=== PATIENT | female | born 1945 | race Hispanic/Latino ===

== ENCOUNTER 2020-05-25 19:22 | Emergency (ER) | payer OTHER ==
[~2020-05-25] VITALS: Ht 167.6 cm; Wt 90.7 kg
[2020-05-25] MEDS ORDERED: ONDANSETRON HCL 4 MG ORAL DISINTEGRATING TAB PO ONE (19:45)
[2020-05-25] MEDS ORDERED: HYDROCODONE/APAP 5MG-325MG TAB PO ONE (19:45)
--- NOTE | 2020-05-25 20:21 | Emergency Department Note ---
History of Present Illnes History of Present Illness Chief Complaint: Extremity Trauma/Pain History of Present Illness This is a 74 year old female reports tripped and fell at approx 1700; pt reports pain to right shoulder, cap refill <3 sec, pulses present, equal, strong; patient denies loc . Historian: Patient Arrival Mode: Car Onset (how long ago): hour(s) (2) Location: RIGHT SHOULDER Quality: PAIN Radiation: Reports non-radiation Severity: moderate Onset quality: sudden Duration (how long): hour(s) (2) Timing of current episode: constant Progression: unchanged Chronicity: new Context: Reports trauma/injury ( ABOVE); Denies recent illness, Denies recent surgery Relieving factors: none Exacerbating factors: movement Associated symptoms: Reports denies other symptoms Treatments prior to arrival: none Past Medical/Family History Physician Review I have reviewed the patient's past medical and family history. Any updates have been documented here. Past Medical History Recent Fever: No Clinical Suspicion of Infectio: No New/Unexplained Change in Ment: No Past Medical History: Hypertension, Hyperlipedemia, DVT/PE Past Surgical History: Cholecysctectomy Social History Smoking Cessation: Never Smoker Counseling Performed: No Alcohol Use: None Any Illegal Drug Use: No Other Any Pre-Existing Lines (PICC,: No Review of Systems Review of Systems Constitutional: Reports no symptoms EENTM: Reports no symptoms Cardiovascular: Reports no symptoms Respiratory: Reports no symptoms Gastrointestinal: Reports no symptoms Genitourinary: Reports no symptoms Musculoskeletal: Reports as per HPI Integumentary: Reports no symptoms Neurological: Reports no symptoms Psychological: Reports no symptoms Endocrine: Reports no symptoms Hematological/Lymphatic: Reports no symptoms Physical Exam Related Data Allergies: Coded Allergies: No Known Allergies (Unverified , 05/25/20) Triage Vital Signs Vital Signs Date Time Temp Pulse Resp B/P (MAP) Pulse Ox O2 Delivery O2 Flow Rate FiO2 05/25/20 19:32 98.1 95 17 192/75 100 Room Air Vital signs reviewed: Yes Physical Exam CONSTITUTIONAL Constitutional: Present well-developed, Present well-nourished HENT HENT: Present normocephalic, Present atraumatic, Present oropharynx clear/moist, Present nose normal HENT L/R: Present left ext ear normal, Present right ext ear normal EYES Eyes: Reports PERRL, Reports conjunctivae normal NECK Neck: Present ROM normal PULMONARY Pulmonary: Present effort normal, Present breath sounds normal CARDIOVASCULAR Cardiovascular: Present regular rhythm, Present heart sounds normal, Present capillary refill normal, Present normal rate GASTROINTESTINAL Abdominal: Present soft, Present nontender, Present bowel sounds normal GENITOURINARY Genitourinary: Present exam deferred SKIN Skin: Present warm, Present dry MUSCULOSKELETAL RIGHT SHOUDLER PT WITH PAIN TO PALPATIONS ROUND ENTIRE HUMERAL HEAD, NO OBVIOUS DEFORMITY, PULSES INTACT, NEURO INTACT NEUROLOGICAL Neurological: Present alert, Present oriented x 3, Present no gross motor or sensory deficits PSYCHOLOGICAL Psychological: Present mood/affect normal, Present judgement normal Results Imaging Imaging results reviewed: Yes Impressions Procedure: [id number] DX/SHOULDER RIGHT COMPLETE Exam Date: 05/25/20 Exam Time: 1999 REPORT STATUS: Signed Shoulder 2 views CPT code: 98771 Indication:Fall, pain Comparison: None. Findings: 2 views of the right shoulder were obtained. Fracture of the surgical neck with extension into the greater and lesser tuberosities and mild impaction. No glenohumeral dislocation. Mild inferior subluxation of the humeral head likely due to hemarthrosis. The acromion, clavicle, and scapula are intact. Visualized ribs are intact. IMPRESSION: Comminuted fracture of the proximal humerus as described above. Signed by: Dr. Praful Handley MD on 05/25/2020 8:17 PM Dictated By: PRAFUL HANDLEY MD 16 Transcribed By: PARESH on 05/25/202016 COPY TO: CASSIDY LESLIE MD~ Procedures Orthopedic Splinting/Casting Injury: Injury #1 Side: right Upper exremity injury location: shoulder Upper extremity immobilizer: sling/shoulder immobilizer Assessment & Plan Medical Decision Making MDM PT WITH RIGHT SHOULDER PAIN S/P FALL RIGHT SHOULDER XRAY ORDERED TO EVAL FOR FRACTURE, DISLOCATION NORCO 5/325 PO ORDERED ZOFRAN 4 MG ODT 1 SL ORDERED i spoke with dr weller (ortho), states have pt call office in am and to come see him in office tomorrow, place pt in sling and swath pt discharged with prescriptions for tylenol# 3 one po q 6 hours prn pain #20, zofran odt 4mg 1 sl q 6 hours prn nausea #20 Assessment & Plan Final Impression: (1) Humeral head fracture (2) Fx humeral neck Depart Disposition: HOME, SELF-CARE Last Vital Signs Date Time Temp Pulse Resp B/P (MAP) Pulse Ox O2 Delivery O2 Flow Rate FiO2 05/25/20 19:32 98.1 95 17 192/75 100 Room Air Medications in the ED Acetaminophen/ Hydrocodone Bitart 1 ea ONCE ONCE PO ; Start 05/25/20 at 19:45; Stop 05/25/20 at 19:49; Status DC Ondansetron HCl 4 mg ONCE ONCE PO ; Start 05/25/20 at 19:45; Stop 05/25/20 at 19:49; Status DC CASSIDY LESLIE MD May 25, 2020 20:20
--- OUTSIDE RECORDS SUMMARY | 2020-05-25 21:57 | XMS REPORT | Summary of Care ---
Author Author DONNA Pickard M.A. Organization Unknown Address Unknown Phone Unavailable Care Team Providers Care Tire Classifier Name Role Phone GREGG HOLLOWAY M.D. Unavailable Unavailable Unavailable Unavailable Functional Status Name Dates Details Functional status health issues are not documented Status: Name Dates Details Cognitive status health issues are not d ocumented Status: Problems Name Dates Details Limb pain (729.5, M79.609) Status: Active Medications Name Dates Details Alendronate Sodium TABS Active Allergies and Adverse Reactions Name Dates Details No Known Drug Allergies (Allergy) Status : Active Past Medical History Name Dates Details History of arthritis (V13.4, Z87.39) Status: Resolved History of hypertension (V12.59, Z86.79) Status: Resolved Procedures Procedure Dates Details History of Cholecystectomy Completed Immunization Name Dates Details Immunizations not documented Family History Name Dates Details Family history of lung cancer (V16.1, Z8 0.1) Status: Active Social History Name Dates Details - Status: Name Dates Details Never smoker Vital Signs Date Test Result Details [id number] BP Systolic 119 mm[Hg] Status: Comments: Lo cation: LUE; Position: Sitting BP Diastolic 69 mm[Hg] Status: Comments: Lo cation: LUE; Position: Sitting Height 64 in Status: Weight 193.0625 lb Status: Body Mass Index Calculated 33.14 kg/m2 Status: Body Surface Area Calculated 1.93 m2 Status: Temperature 98.5 f Status: Comments: Me thod: Oral Heart Rate 69 /min Status: Results Date Description Value Details [id number] MA Digital Mammo DX Uni [id number] Digital Mammo DX Uni MA SEE NOTES Comments : UNILATERAL RIGHT DIGITAL DIAGNOSTIC MAMMOGRAM WITH CAD: 02/23/2018CLINICAL: Post wire digital mammogram films from ultrasound localizationright breast mass 1 o'clock. Current study was evaluated with a Computer Aided Detection (CAD) system. COMPARISON:Comparison is made to exams dated: 01/06/2018 mammogram, 12/29/2017mammogram, 12/03/2017 mammogram, 01/06/2018 ultrasound biopsy, and 12/29/2017ultrasound - [facility]. TECHNIQUE: Mammographic views were obtained using digital acquisition. Crispify 1.3 was utilized for computer aided detection. FINDINGS:There are scattered fibroglandular densities in right breast. Post procedure right digital mammogram demonstrates successful placement of theneedle localization wire. The biopsied mass lies at the 3rd thickened portionof the wire. Radiographs with markings and notes were provided to the surgeon. There has been no significant interval change.IMPRESSION: SUSPICIOUS OF MALIGNANCYPost procedure, preoperative mammogram demonstrates successful placement of theneedle localization wire.Please see separate ultrasound localization and specimen radiograph reports formore details. This exam was interpreted at [id number] for [facility]. Jovan Handley M.D. jt/:02/23/2018 11:50:05 Erp Business Analyst(s): Nicole Mitchell [facility]: 4b Suspicious abnormality - intermediate suspicion o fmalignancy--Read by: Jovan Handley MDDictated Date/time: 02/23/18 11:50Electronically Signed by: Jovan Handley MD 02/23/1811:50FINAL REPORT [id number] MA Breast specimen surgery [id number] Breast specimen surgery SEE NOTES Comments : UNI-PLANAR RADIOGRAPH SPECIMEN IMAGING RIGHT BREAST- POST-EXCISIONAL BIOPSY:02/23/2018CLINICAL: Specimen from needle localizationright breast 1 o'clock mass. Correlation is made to exams henry ed: 02/23/2018 mammogram, 02/23/2018localization, 01/06/2018 mammogram, 01/06/2018 ultrasound biopsy, 12/29/2017ultrasound, and 12/29/2017 mammogram - [facility]. A surgical/wire localization specimen was imaged using uni-planar radiographspecimen imaging for the concerning 1 cm region located in the right breast at1 o'clock posterior depth 2 cm from the nipple. This was described on theprevious mammography, ultrasound, and biopsy reports. IMPRESSION: UNI-PLANAR RADIOGRAPH SPECIMEN IMAGINGThe imaged specimen includes the lesion, a biopsy clip, and the distal portionof the localization wire. The specimen shows characteristics of themammographic findings. Specimen radiograph was discussed with the surgeon at 1143 hours on the day ofthe localization. Please see localization report and separate diagnostic mammogram reports forfurther details. This exam was interpreted at [id number] for [facility].Jovan lee/:02/23/2018 14:12:30 Erp Business Analyst(s): Nicole Mitchell, [facility]--Read by: Jovan Handley MDDictated Date/time: 02/23/18 14:12Electronically Signed by: Jovan Handley MD 02/23/1814:12FINAL REPORT [id number] US Guided Needle Localization Uni MA [phone] US Guided Needle Localization Uni MA SEE NOTES Comments: ULTRASOUND GUIDED WIRE LOCALIZATION RIGHT BREAST WITH POST DIGITAL MAMMOGRAPHICAND ULTRASOUND IMAGIN02/23/2018CLINICAL: /Massright 1 o'clock mass atypia bordering on DCISpreoperative localization exam. PATIENT CONSENT: Oral and written informed consent was obtained by the surgicaldepartment but was reviewed with the patient prior to performing thisprocedure. Risks, benefits, and alternatives were d iscussed with the patient.Risks include but are not limited to pain, infection, bleeding, repeatprocedure, pneumothorax, and allergic reaction. The patient understands theplan and wishes to proceed. A time out was performed immediately before theprocedure. Correlation is made to exams dated: 01/06/2018 ultrasound biopsy and 12/03/2017mammogram - [facility]. A wire localization using ultrasound guidance was performed for the concerning1 cm indistinct mass located in the right breast at 1 o'clock posterior depth 2cm from the nipple. This was described on the previous ultrasound and biopsyreports. The skin was prepped in the usual manner. 5 ccs of 1% lidocaine wasadministered at the access site. The localization was approached from thelateral aspect. A J-hook wire was inserted into the targeted area underultrasound guidance. A skin adhesive and a sterile dressing were applied tothe access site. Post placement digital mammographic and ultrasound imaginginterpreted on a dedicated mammography workstation demonstrates the tiptraverses the targeted area. IMPRESSION: WIRE LOCALIZATION MALIGNANTWire localization for the 1 cm mass in the right breast at 1 o'clock posteriordepth 2 cm from the nipple was successful with no apparent post procedurecomplications. Pathology indicates malignant results -"DUCTAL CARCINOMA IN SITU, NUCLEAR GRADE 1-2, CRIBRIFORM PATTERN. - Atypical ductal hyperplasia. - Margins of excision are free of tumor but the tumor is 0.3 mm from theclosest, anterior superior inked margin of resection. - Changes consistent with previous biopsy site. - Fibrocystic and fibroadenomatous changes with columnar cell alterationand ectatic duct with associated inflammation, probably disrupted with adjacentgranulomatous inflammation showing necrosis and numerous eosinophils. - Focal lactational metaplasia". Surgical pathology results are concordant with imaging findings. Continued surgical and medical oncology consultation is recommended. Thephysician was notified of the results at 1545 hrs 02/27/18.SUMMARY:Please see separate diagnostic mammogram for details on the localization wire.Specimen radiograph was also performed with results on a separate report. This exam was interpreted at [id number] for [facility]. Jovan Handley M.D. jt/:02/27/2018 15:46:03 Erp Business Analyst(s): Kate Mendez, [facility]--Read by: Jovan Handley MDDictated Date/time: 02/27/18 15:46Electronically Signed by: Jovan Handley MD 02/27/1815:46FINAL REPORT Plan of Care Name Dates Details Planned Observations Planned Goals not documented Planned Encounters Appointment; GREGG HOLLOWAY M.D. On: 22-Sep-2018 9:00 Instructions Name Dates Details Instructions not documented Encounters Appointment; MIKAYLA MCKENZIE M.D. Encounter Diagnosis: Problem not documented On: 08-Jan-2017 15:30 Appointment; GERRI MOYA M.D. Encounter Diagnosis: Problem not documented On: 05-Feb-2017 9:00 Appointment; GREGG HOLLOWAY M.D. Encounter Diagnosis: Problem not documented On: 17-Feb-2018 9:30 Appointment; GREGG HOLLOWAY M.D. Encounter Diagnosis: Problem not documented On: 24-Mar-2018 10:00
--- OUTSIDE RECORDS SUMMARY | 2020-05-25 21:57 | XMS REPORT | Continuity of Care Document ---
Author Author [facility] Organization [facility] Address [address] [place] [address] Phone Unavailable Care Team Providers Care Grinder Outside Diameter Name Role Phone Larissa LESLIE Attphys Unavailable RGEGG HOLLOWAY M.D. Attphys Unavailable GERRI MOYA M.D. Attphys Unavailable MIKAYLA MCKENZIE M.D. Attphys Unavailable Problems Condition Name Condition Details Condition Category Status Onset Date Resolution Date Last Treatment Date Treating Clinician Comments Source History of arthritis History of arthritis Problem HL7.CCDAR2 Resolved [facility] History of hypertension History of hypertension Problem HL7.CCDAR2 Res olved [facility] Limb pain Limb pain Problem HL7.CCDAR2 Active [facility] Allergies, Adverse Reactions, Alerts This patient has no known allergies or adverse reactions. Family History Family Member Diagnosis Comments Start Date Stop Date Source Brother Family history of lung cancer [facility] Social History Smoking Status Start Date Stop Date Source Never smoker [facility] Medications Ordered Medication Name Filled Medication Name Start Date Stop Da te Current Medication? Ordering Clinician Indication Dosage Frequency Signature (SIG) Comments Components Source Alendronate Sodium TABS Alendronate Sodium TABS Yes [facility] Vital Signs Vital Name Observation Time Observation Value Comments Source BP Systolic 2018-03-24 10:30:00 119 mm[Hg] Location: LUE; Positi on: Sitting [facility] BP Diastolic 2018-03-24 10:30:00 69 mm[Hg] Location: LUE; Positi on: Sitting [facility] Height 2018-03-24 10:30:00 64 [in_us] [facility] Weight 2018-03-24 10:30:00 193.0625 [lb_av] [facility] Body Mass Index Calculated 2018-03-24 10:30:00 33.14 kg/m2 [facility] Temperature 2018-03-24 10:30:00 98.5 [degF] Method: Oral [facility] Heart Rate 2018-03-24 10:30:00 69 /min [facility] BP Systolic 2018-02-17 10:26:00 121 mm[Hg] Location: RANDALL Positi on: Sitting [facility] BP Diastolic 2018-02-17 10:26:00 64 mm[Hg] Location: KHADAR; Positi on: Sitting [facility] Height 2018-02-17 10:26:00 64 [in_us] [facility] Weight 2018-02-17 10:26:00 192.5625 [lb_av] [facility] Body Mass Index Calculated 2018-02-17 10:26:00 33.05 kg/m2 [facility] Heart Rate 2018-02-17 10:26:00 72 /min [facility] Temperature 2018-02-17 10:26:00 98.2 [degF] Method: Oral [facility] Procedures Procedure Date / Time Performed Performing Clinician [facility] e History of Cholecystectomy [facility] Encounters Start Date/Time End Date/Time Encounter Type Admission Type Attendi [facility] Care Department Encounter ID Source 2018-03-24 10:00:00 2018-03-24 10:00:00 Appointment; KRISHNA HOLLOWAY RA, M.D. SAUNDERS, TAMARA, M.D. [facility] [id number] [facility] 2018-02-17 09:30:00 2018-02-17 09:30:00 Appointment; KRISHNA HOLLOWAY RA, M.D. SAUNDERS, TAMARA, M.D. [facility] [id number] [facility] 2017-02-05 09:00:00 2017-02-05 09:00:00 Appointment; VICTOR MANUEL MOYA M.D. NUGENT, ELIZABETH, M.D. [facility] [id number] [facility] 2017-01-08 15:30:00 2017-01-08 15:30:00 Appointment; MIKAYLA MCKENZIE M.D. HUANG, EDDIE, M.D. [facility] [id number] [facility] Results Test Description Test Time Test Comments Results Result Comments Source SHOULDER RIGHT COMPLETE 2020-05-25 20:15:00 [place] [address] Patient Name: DONNA CUNNINGHAM MR #: [id number] : 1945 Age/Sex: 74/F Req #: [id number] Adm Physician: Ordered by: CASSIDY LESLIE MD Report #: [id number] Location: ER Room/Bed: Procedure: [id number] DX/SHOULDER RIGHT COMPLETE Exam Date: 05/25/20 Exam Time: 1999 REPORT STATUS: Signed Shoulder 2 views CPT code: 16736 Indication:Fall, pain Comparison: None. Findings: 2 views of the right shoulder were obtained. Fracture of the surgical neck with extension into the greater and lesser tuberosities and mild impaction. No glenohumeral dislocation. Mild inferior subluxation of the humeral head likely due to hemarthrosis. The acromion, clavicle, and scapula are intact. Visualized ribs are intact. IMPRESSION: Comminuted fracture of the proximal humerus as described above. Signed by: Dr. Praful Handley MD on 05/25/2020 8:17 PM Dictated By: PRAFUL HANDLEY MD 16 Transcribed By: PARESH on 05/25/202016 COPY TO: CASSIDY LESLIE MD MA Breast specimen surgery [id number] 2018-02-23 11:38:00 UNI-PLANAR RADIOGRAPH SPECIMEN IMAGING RIGHT BREAST- POST-EXCISIONAL BIOPSY:02/23/2018CLINICAL: Specimen from needle localizationright breast 1 o'clock mass. Correlation is made to exams dated: 02/23/2018 mammogram, 02/23/2018localization, 01/06/2018 mammogram, 01/06/2018 ultrasound biopsy, 12/29/2017ultrasound, and 12/29/2017 mammogram - [facility]. A surgical/wire localization specimen was imaged using [...] forfurther details. This exam was interpreted at [id number] for [facility].Jovan Handley M.D. jt/:02/23/2018 14:12:30 Cloud Engagement Partner(s): Nicole Mitchell, [facility]--Read by: Jovan Handley MDDictated Date/time: 02/23/18 14:12Electronically Signed by: Jovan Handley MD 02/23/1814:12FINAL REPORT [facility] [place] Digital Mammo DX Uni [id number] 2018-02-23 11:31:00 UNILATERAL RIGHT DIGITAL DIAGNOSTIC MAMMOGRAM WITH CAD: 02/23/2018CLINICAL: Post wire digital mammogram films from ultrasound localizationright breast mass 1 o'clock. Current study was evaluated with a Computer Aided Detection (CAD) system. COMPARISON:Comparison is made to exams dated: 01/06/2018 mammogram, 12/29/2017mammogram, 12/03/2017 mammogram, 01/06/2018 ultrasound biopsy, and 12/29/2017ultrasound - [facility]. TECHNIQUE: Mammographic views were obtained using digital acquisition. CommuniClique 1.3 was utilized for computer aided detection. [...] formore details. This exam was interpreted at [id number] for [facility]. Jovan lee/:02/23/2018 11:50:05 Cloud Engagement Partner(s): Nicole Mitchell [facility]ADS: 4b Suspicious abnormality - intermediate suspicion o fmalignancy--Read by: Jovan Handley MDDictated Date/time: 02/23/18 11:50Electronically Signed by: Jovan Handley MD 02/23/1811:50FINAL REPORT [facility] [place] [id number] 2018-02-23 09:46:00 ULTRASOUND GUIDED WIRE LOCALIZATION RIGHT BREAST WITH POST DIGITAL MAMMOGRAPHICAND ULTRASOUND IMAGIN02/23/2018CLINICAL: /Massright 1 o'clock mass atypia bordering on DCISpreoperative localization exam. PATIENT CONSENT: Oral and written informed consent was obtained by the surgicaldepartment but was reviewed with the patient prior to performing thisprocedure. Risks, benefits, and alternatives were discussed with the patient.Risks include but are not limited to pain, infection, bleeding, repeatprocedure, pneumothorax, and allergic reaction. The patient understands theplan and wishes to proceed. A time out was performed immediately before theprocedure. Correlation is made to exams dated: 01/06/2018 ultrasound biopsy and 12/03/2017mammogram - [facility]. A wire localization using ultrasound guidance was [...] separate report. This exam was interpreted at [id number] for [facility]. Jovan christiet/:02/27/2018 15:46:03 Cloud Engagement Partner(s): Kate Mendez, [facility]--Read by: Jovan Handley MDDictated Date/time: 02/27/18 15:46Electronically Signed by: Jovan Handley MD 02/27/1815:46FINAL [facility]PORT [facility]
== END 2020-05-25 21:23 | disposition home or self-care (01) ==
LOC: ER 19:31
DX: S42.291A Other displaced fracture of upper end of right humerus, initial encounter for closed fracture (principal); W01.0XXA Fall on same level from slipping, tripping and stumbling without subsequent striking against object, initial encounter; Y92.008 Other place in unspecified non-institutional (private) residence as the place of occurrence of the external cause; I10 Essential (primary) hypertension; E78.5 Hyperlipidemia, unspecified; Z86.718 Personal history of other venous thrombosis and embolism
CPT/HCPCS: 29240; 73030; 99283; Q0162

== ENCOUNTER → 2020-06-02 | Day surgery (SDC) | payer MEDICARE, OTHER ==
[2020-05-30 10:53] LABS: BASOPHILS # (AUTO) 0.1 (0.0-0.1); BASOPHILS % 0.6 % (0.0-1.0); EOSINOPHILS # (AUTO) 0.4 (0.0-0.4); EOSINOPHILS % 3.5 % (0.0-6.0); HEMATOCRIT 37.4 % (34.2-44.1); HEMOGLOBIN 11.9 g/dL (12.0-16.0); LYMPHOCYTES # (AUTO) 1.6 (1.0-3.2); LYMPHOCYTES % 15.1 % (18.0-39.1); MEAN CORPUSCULAR HEMOGLOBIN 28.1 pg (28-32); MEAN CORPUSCULAR HGB CONC 31.8 g/dL (31-35); MEAN CORPUSCULAR VOLUME 88.2 fL (81-99); MONOCYTES # (AUTO) 1.1 (0.2-0.8); MONOCYTES % 10.3 % (4.4-11.3); NEUTROPHILS # (AUTO) 7.6 (2.1-6.9); NEUTROPHILS % 69.9 % (38.7-80.0); PLATELET COUNT 260 x10e3/uL (140-360); RED BLOOD COUNT 4.24 x10e6/uL (3.6-5.1); RED CELL DISTRIBUTION WIDTH 13.7 % (11.7-14.4)
--- NOTE | 2020-05-30 11:36 | Diagnostic Imaging Report ---
EXAMINATION: CHEST 2 VIEWS INDICATION: Pre-operative COMPARISON: None FINDINGS: LINES/TUBES:None LUNGS:The lungs are well-inflated. No focal consolidation or pulmonary edema. PLEURA:No pleural effusion or pneumothorax. MEDIASTINUM:The cardiomediastinal silhouette appears normal in size and shape. Atherosclerotic calcifications of the thoracic aorta. BONES/SOFT TISSUES:No acute osseous injury. Known right proximal humerus fracture is not imaged on this chest radiograph. ABDOMEN:No free air under the diaphragm. IMPRESSION: No focal pneumonia or pulmonary edema. Signed by: Kevin Rosas MD on 05/30/2020 11:32 AM
[~2020-06-02] MED LIST: ALENDRONAT70 MG/75 M PO; CEFAZOLIN SOD 1 GM/NS 50ML 100 ML IV ONE; CRESTOR10 MG PO; DEXAMETHASONE SOD PHOS INJ 4 MG/ML VIAL ONE; FENTANYL CITRATE/PF 100MCG/2 ML INJ ONE; GLYCOPYRROLATE INJ 0.2 MG/ML VIAL ONE; INDERAL XL80 MG PO; LIDOCAINE 2% /EPINEPHRINE 20 ML SDV INJ ONE; LIDOCAINE HCL 2% LOCAL INJ 5 ML SDV VIAL INJ ONE; LOSARTAN POTAS100 MG PO; MIDAZOLAM HCL 2 MG/2 ML VIAL ONE; NEOSTIGMINE 1 MG/ML 10ML VIAL ONE; ONDANSETRON HCL INJ 2MG/ML 2ML 2 MG/ML VIAL ONE; PHENYLEPHRINE HCL 1% 10 MG/ML VIAL ONE; PLAVIX75 MG PO; PROPOFOL IV EMULSION 10 MG/ML 20 ML VIAL ONE; ROCURONIUM BROMIDE 10 MG/ML 5ML VIAL IV ONE; ROPIVACAINE 0.5% 5 MG/ML 30 ML SDV ONE; SEVOFLURANE INHAL SOLN 250 ML PEN BTL ONE
[2020-06-02 14:00] VITALS: BP 117/54
--- NOTE | 2020-06-02 14:02 | NUR ---
Description: Right Shoulder 3 part proximal humerus fracture. PREOPERATIVE DIAGNOSES: 1. Right proximal humerus 3 part fracture POSTOPERATIVE DIAGNOSES: 1. Right proximal humerus 3 part fracture PROCEDURE PERFORMED: 1. Right shoulder proximal humerus open reduction internal fixation with fibular strut allograft and cancellous bone chips 2. Flouroscopic Interpretation ANESTHESIA: General and Interscalene Block ESTIMATED BLOOD LOSS: Approximately 100 cc. COMPLICATIONS: None. COMPONENTS: [place] Axos 3 4 hole right lateral proximal humerus plate, 7 4.0 Locking Screws, 3 3.5 mm Cortical Screws, BRIEF HISTORY: The patient is an 74-year-old right-hand dominant female who presents for shoulder pain and a displaced 3 part proximal humerus fracture after having a mechanical fall PROCEDURE: In the holding areas, the patient's identity and laterality of the procedure was confirmed. The patient was taken to the operative suite, placed on the operative field. Department of Anesthesia administered general anesthetic with endotracheal intubation. Once adequately sedated, the patient was placed in the beach chair position. Care was ensured that he was well positioned, adequately secured and padded. At this point, the right upper extremity was then prepped and draped in the usual sterile fashion. A deltopectoral approach was used and taken down to the skin with a #15 blade scalpel. Care was taken to preserve the cephalic vein with adequate hemostasis At this point, blunt dissection with Millan scissors was used to come to the overlying subscapular tendon and bursal tissue. Any perforating bleeders were cauterized with Bovie to obtain hemostasis. Once the bursa was removed the subscapular tendon could be easily visualized. At this point, the rotator cuff in the subacromial region was evaluated. Sutures were placed within the bony tendon junction of the subscapularis, supraspinatus and infraspinatus. The fracture was evaluated and a voluminous humeral shaft was noted. With an elevator the tuberosities were and the articular surface was elevated. Due to the voluminous humeral shaft, 15 cc of cancellous bone chips was placed in the bone were placed behind the articular surface to assist in holding the fracture in adequate alignment. The fracture fragments were reduced and pins were placed to hold the fragments in position. Next a mary proximal humerus plate was attached lateral to the biceps groove. Proper placement was visualized with flouroscopy. The proximal portion of the plate was secured in place to with locking screws and the distal portion was secured to the cortical screws. The sutures through the rotator cuff were secured through the plate further augmenting fixation. After all the hardware was placed, careful flouroscopic evaluation was performed in a "around the globe" manner to ensure there was no intra-articular penetration of the screws. The rotator cuff interval was closed and was thoroughly irrigated. The deltopectoral interval was closed with vicryl, as well the subcutaneous tissue after adequate hemostasis. The skin was closed with monocryl and a Dermabond dressing was placed on the skin along with an Aquacel dressing, ABD Dressings and Foam Tape. The arm was placed in a sling and the patient was transferred back to the [facility] DISPOSITION: The patient tolerated well and transferred to Postanesthesia Care Unit in satisfactory condition.
== END | disposition home or self-care (01) ==
LOC: OR 08:51
PROVIDERS: ATTEND Orthopaedic Surgery
DX: S42.231A 3-part fracture of surgical neck of right humerus, initial encounter for closed fracture (principal); I10 Essential (primary) hypertension; I25.10 Atherosclerotic heart disease of native coronary artery without angina pectoris; W19.XXXA Unspecified fall, initial encounter; Y92.009 Unspecified place in unspecified non-institutional (private) residence as the place of occurrence of the external cause; Z01.810 Encounter for preprocedural cardiovascular examination; Z01.812 Encounter for preprocedural laboratory examination; Z01.818 Encounter for other preprocedural examination; Z79.02 Long term (current) use of antithrombotics/antiplatelets; Z68.36 Body mass index [BMI] 36.0-36.9, adult; Z85.3 Personal history of malignant neoplasm of breast; Z95.5 Presence of coronary angioplasty implant and graft
CPT/HCPCS: 23615; 36415; 71046; 76000; 85025; 93005; C1713 ×8; J0690; J1100; J2001 ×2; J2250; J2370; J2405; J2704; J2710; J2795; J3010; U0002